=== PATIENT | female | born 1975 | race Caucasian/White ===

== ENCOUNTER 2025-01-31 15:32 | Emergency (ER) | payer OTHER ==
[~2025-01-31] VITALS: Ht 165.1 cm; Wt 91.4 kg
[2025-01-31 16:21] LABS: MEAN PLATELET VOLUME 9.2 FL (7.4-10.4); RED CELL DISTRIBUTION WIDTH 12.7 % (11.5-14.5)
--- NOTE | 2025-01-31 16:27 | Physician Documentation ---
History of Present Illness ~ Chief Complaint: Urinary Symptoms Stated Complaint: SOB/ LIGHT HEADED Time Seen by MD: 17:31 HPI This is a 49-year-old female who presents with continued suprapubic pain and dysuria after being treated for UTI by her primary care provider, patient reports no dysuria, back or flank pain and reports no fevers, chills, or other systemic symptoms. Patient reports that she noticed a few small tiny vaginal tear wonders if this might be the cause of her pain. Medication Reconciliation Allergies: Coded Allergies: acetaminophen (Unverified Allergy, Unknown, 01/31/25) aspirin (Unverified Allergy, Unknown, 01/31/25) codeine (Unverified Allergy, Unknown, 01/31/25) diphenhydramine (Unverified Allergy, Unknown, 01/31/25) hydrocodone (Unverified Allergy, Unknown, 01/31/25) Scheduled PRN Phenazopyridine Hcl (Pyridium tablet), 2 TAB PO Q8H PRN for pain Review of Systems ROS As stated above in the HPI, otherwise all systems are reviewed and negative. Physical Exam Vital Signs: RN Vital Signs have been reviewed: Yes, Temperature: 97.3, Source: Temporal, Heart Rate: 110, Respiratory Rate: 18, BP: 115/65, Pulse Oximetry: 97, Weight: 91.400 Oxygen Flow Rate: 0 Physical Exam VITALS: Reviewed and as above. GENERAL: Alert, nontoxic appearing, no apparent distress. HEENT: RESPIRATORY: No increased work of breathing, no respiratory distress, speaking in full clear sentences CHEST: CV: BACK: No CVA tenderness GI: MUSCULOSKELETAL: SKIN: NEURO: PSYCH: General Appearance: alert, mild distress Neck: normal inspection Respiratory: lungs clear Chest: no accessory muscle use Cardiovascular: normal peripheral pulses Gastrointestinal: non-tender /Pelvic Deferred to [facility] Neurologic: oriented x4 Psychiatric: normal mood/affect Skin: normal color Lymphatic: no adenopathy Progress Results/Orders Results/Orders Completed Orders - NOAH LOBATO PAC Phenazopyridine Tablet (Pyridium Tablet) (01/31/25 18:05) Vital Signs 01/31/25 01/31/25 01/31/25 01/31/25 15:37 17:52 18:13 19:34 Temp 97.3 97.3 98.6 Pulse 110 91 89 Resp 18 16 16 B/P (MAP) 115/65 116/69 (85) 116/72 Pulse Ox 97 98 99 O2 Flow Rate 0 0 Laboratory Tests Test 01/31/25 16:07 01/31/25 16:22 White Blood Count 9.9 Red Blood Count 4.75 Hemoglobin 14.6 Hematocrit 42.9 Mean Corpuscular Volume 90.2 Mean Corpuscular Hemoglobin 30.8 Mean Corpuscular Hemoglobin Concent 34.2 Red Cell Distribution Width 12.7 Platelet Count 314 Mean Platelet Volume 9.2 Neutrophils (%) (Auto) 80.7 H Lymphocytes (%) (Auto) 11.4 L Monocytes (%) (Auto) 6.3 Eosinophils (%) (Auto) 1.0 Basophils (%) (Auto) 0.6 Neutrophils # (Auto) 8.0 H Lymphocytes # (Auto) 1.1 Monocytes # (Auto) 0.6 Eosinophils # (Auto) 0.1 Basophils # (Auto) 0.1 CBC Comment Sodium Level 138 Potassium Level 4.0 Chloride Level 104 Carbon Dioxide Level 26.1 Anion Gap 8 Blood Urea Nitrogen 12 Creatinine 1.22 H Estimated GFR/1.73 m2 47 BUN/Creatinine Ratio 9.8 L Glucose Level 146 H Calcium Level 9.1 Total Bilirubin 0.5 Aspartate Amino Transf (AST/SGOT) 30 Alanine Aminotransferase (ALT/SGPT) 42 Alkaline Phosphatase 60 Total Protein 7.4 Albumin 3.9 Globulin 3.5 Albumin/Globulin Ratio 1.1 Lipase 54 Chemistry Comments Urine Specimen Description Cln catch midstream Urine Color Yellow Urine Clarity Clear Urine pH 6.0 Urine Specific [place] 1.010 Urine Protein Negative Urine Glucose (UA) Negative Urine Ketones Negative Urine Occult Blood Small Urine Nitrite Negative Urine Bilirubin Negative Urine Urobilinogen 0.2 Urine Leukocyte Esterase Negative Urine RBC 3-10 Urine WBC 0-4 Urine Squamous Epithelial Cells Few Urine Renal Cells Few Urine Bacteria Few Urine Mucus Urine Culture Indicated Not ind Volume Urine Centrifuged 10 ml Urine HCG, Qualitative Negative Urine Comment Medical Decision Making Additional information obtaine: family Findings MSE performed in triage and patient returned to ED lobby by nursing staff to await available ED room. Dysuria without obvious urinary tract infection to be treated with Pyridium. 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 Shared decision-making to defer exam. Labs otherwise reassuring except for a mild bump in the creatinine which may be secondary to patient's long-term use of psychotropic drugs. Patient's safely discharged in the emergency department. Urinary Diff Dx:Considerations: Include: Pyelonephritis, Renal failure, Urinary Obstruction, Urolithiasis, UTI, Vaginitis Genital Diff Dx:Considerations: Include: Cervicitis, PID, Trauma, UTI, Vaginitis(osis)-Atrophic, Vaginitis, Other (Vaginal tear) Departure Disposition: HOME / SELF CARE / HOMELESS Impression: Primary Impression: Hematuria Qualified Codes: R31.1 - Benign essential microscopic hematuria Additional Impressions: Dysuria Vaginal abrasion Qualified Codes: S30.814D - Abrasion of vagina and vulva, subsequent encounter Condition: Improved Discharge Instructions: Dysuria Additional Instructions: Please make follow up appointment with your primary care physician and/or competitive athlete doctor for formal speculum examination. Please begin Pyridium as directed. There was no evidence of urinary tract infection in your urinalysis tonight. Please have your doctor review you most current labs obtained tonight. Thank you for visiting emergency department [facility]. Have a happy holiday season. Referrals: NO PRIMARY CARE PROVIDER (PCP) Prescriptions Phenazopyridine Hcl (Pyridium tablet) 100 Mg Tablet 2 TAB PO Q8H PRN for pain, #18 TAB Prov: NOAH LOBATO PAC 01/31/25 Education Educated: Patient, Family Educated regarding: diagnosis, treatment, prognosis, need for follow up Signature Scribe Signature: . Attestation: . ARACELY BANSAL [employer]ER Jan 31, 2025 16:27 NOAH LOBATO PAC Jan 31, 2025 19:29
[2025-01-31 16:32] LABS: CREATININE 1.22 MG/DL (0.40-0.90); TOTAL CARBON DIOXIDE 26.1 MMOL/L (24-32); eCRCL 51 ML/MIN; eGFR 47 ML/MIN
[2025-01-31 16:58] LABS: URINE HCG NEGATIVE (NEG)
[2025-01-31 17:01] LABS: LEUKOCYTE ESTERASE ,URINE NEGATIVE (Neg); NITRITES, URINE NEGATIVE (Neg); OCCULT BLOOD,URINE SMALL (Neg)
[2025-01-31 17:04] LABS: UA COLLECTION TYPE CLN CATCH MIDSTREAM
[2025-01-31 17:26] LABS: RENAL CELLS, URINE FEW /HPF; SQUAMOUS EPITHELIAL CELL,UR FEW /LPF (FEW)
[2025-01-31] MEDS: phenazopyridine 100mg tablet PO ONE (18:12)
[2025-01-31] MEDS ORDERED: PHEN-786 PO (19:29)
[2025-01-31 19:34] VITALS: BP 116/72; PULSE 89; RESP 16; TEMP 98.6; O2SAT 99
== END 2025-01-31 19:35 | disposition home or self-care (01) ==
LOC: ER 15:34
DX: S30.814A Abrasion of vagina and vulva, initial encounter (principal); R31.9 Hematuria, unspecified; R30.0 Dysuria; Z88.6 Allergy status to analgesic agent; Z88.5 Allergy status to narcotic agent; Z87.440 Personal history of urinary (tract) infections; Z79.899 Other long term (current) drug therapy; X58.XXXA Exposure to other specified factors, initial encounter; Y93.89 Activity, other specified; Y92.89 Other specified places as the place of occurrence of the external cause; Y99.8 Other external cause status
CPT/HCPCS: 36415; 80053; 81001; 81025; 83690; 85025; 99283